=== PATIENT | male | born 1985 | race Caucasian/White ===

== ENCOUNTER 2020-10-06 17:16 | Emergency (ER) | payer OTHER ==
[2020-10-06 18:55] LABS: HEMOGLOBIN 15.9 gm/dl (14.0-17.5); RED BLOOD COUNT 5.19 M/UL (4.20-5.50)
[2020-10-06 19:21] LABS: BUN/CREATININE RATIO 17 (0-10)
[2020-10-06] MEDS ORDERED: OMNICEF 300 MG300 MG PO (21:40)
== END 2020-10-06 22:45 | disposition home or self-care (01) ==
LOC: ER1 17:16
PROVIDERS: Emergency Medicine
DX: J18.9 Pneumonia, unspecified organism (principal); Z20.822 Contact with and (suspected) exposure to COVID-19
CPT/HCPCS: 71045; 80053; 81001; 83605; 85025; 86403; 87040; 96365; 99283; J0696; U0002